=== PATIENT | female | born 1990 | race American Indian/Alaskan Native ===

== ENCOUNTER 2017-12-03 15:35 | Emergency (ER) | payer SELFPAY ==
[2017-12-03 16:30] VITALS: BP 108/70
--- NOTE | 2017-12-03 18:53 | XRay Report ---
FINAL REPORT PROCEDURE: XR ANKLE 3+V LT TECHNIQUE: LEFT ankle radiographs, AP, lateral, and oblique views. HISTORY: Pain/swelling. COMPARISON: No prior studies are available for comparison. FINDINGS: Fracture (s) and/or Dislocation(s): None. Alignment: Normal. Joint space(s): Os trigonum. Soft tissues: Mild soft tissue swelling about the ankle. Bone mineralization: Normal. Foreign bodies: None. Calcaneal spurring: Tiny calcaneal spur. IMPRESSION: Mild soft tissue swelling about the ankle without radiographic evidence of displaced fracture.
[2017-12-03] MEDS ORDERED: MOTRIN PO ONE (19:55)
--- NOTE | 2017-12-03 19:55 | Emergency Department Report ---
ED Lower Extremity HPI - General Chief Complaint: Extremity Injury, Lower Stated Complaint: SWOLLEN (L) ANKLE Time Seen by Provider: 12/03/17 19:10 Source: patient Mode of arrival: Ambulatory Limitations: No Limitations - History of Present Illness Initial Comments: This is a 27-year-old female nontoxic, well nourished in appearance, no acute signs of distress presents to the ED with c/o of left ankle pain and swelling 1 day. Patient stated that she was walking at her ankle. Patient denies any other trauma. Patient denies any numbness, tingling, fever, chills, nausea, vomiting, chest pain, shortness of breath, headache, stiff neck. Patient denies any joint swelling or joint redness. Patient denies decreased range of motion. Patient stated has decreased gait due to pain. Patient denies any allergies or significant past medical history. MD Complaint: ankle injury -: days(s) (1) Injury: Ankle: Left Type of Injury: inversion Place: work Severity: mild Severity scale (0 -10): 8 Improves With: immobilization Worsens With: weight bearing, movement, palpation Associated Symptoms: swelling, able to partially bear weight, ambulatory. denies: snap/pop sensation, numbness, tingling, unable to bear weight - Related Data Previous Rx's Medication Instructions Recorded Last Taken Type Acetaminophen/Codeine [Tylenol 1 tab PO Q6H PRN #12 tab 12/03/17 Unknown Rx /Codeine # 3 tab] Ibuprofen [Motrin] 600 mg PO Q8H PRN #30 tablet 12/03/17 Unknown Rx Allergies Allergy/AdvReac Type Severity Reaction Status Date / Time No Known Allergies Allergy Unverified 12/03/17 16:25 ED Review of Systems ROS: Stated complaint: SWOLLEN (L) ANKLE Other details as noted in HPI Constitutional: denies: chills, fever Eyes: denies: eye pain, eye discharge, vision change ENT: denies: ear pain, throat pain Respiratory: denies: cough, shortness of breath, wheezing Cardiovascular: denies: chest pain, palpitations Endocrine: no symptoms reported Gastrointestinal: denies: abdominal pain, nausea, diarrhea Genitourinary: denies: urgency, dysuria, discharge Musculoskeletal: denies: back pain, joint swelling, arthralgia Skin: denies: rash, lesions Neurological: denies: headache, weakness, paresthesias Psychiatric: denies: anxiety, depression Hematological/Lymphatic: denies: easy bleeding, easy bruising ED Past Medical Hx - Past Medical History Previous Medical History?: Yes Additional medical history: endometreosis - Surgical History Past Surgical History?: Yes Additional Surgical History: hernia repair - Social History Smoking Status: Never Smoker Substance Use Type: None - Medications Home Medications: Home Medications Medication Instructions Recorded Confirmed Last Taken Type Acetaminophen/Codeine [Tylenol 1 tab PO Q6H PRN #12 tab 12/03/17 Unknown Rx /Codeine # 3 tab] Ibuprofen [Motrin] 600 mg PO Q8H PRN #30 tablet 12/03/17 Unknown Rx ED Physical Exam - General Limitations: No Limitations General appearance: alert, in no apparent distress - Head Head exam: Present: atraumatic, normocephalic - Eye Eye exam: Present: normal appearance - ENT ENT exam: Present: mucous membranes moist - Neck Neck exam: Present: normal inspection - Respiratory Respiratory exam: Present: normal lung sounds bilaterally. Absent: respiratory distress - Cardiovascular Cardiovascular Exam: Present: regular rate, normal rhythm. Absent: systolic murmur, diastolic murmur, rubs, gallop - GI/Abdominal GI/Abdominal exam: Present: soft, normal bowel sounds - Extremities Exam Extremities exam: Present: normal inspection, full ROM, tenderness, normal capillary refill. Absent: joint swelling - Expanded Lower Extremity Exam Left Hip exam: Present: normal inspection, full ROM. Absent: tenderness, swelling Upper Leg exam: Present: normal inspection, full ROM. Absent: tenderness, swelling Knee exam: Present: normal inspection, full ROM. Absent: tenderness, swelling Lower Leg exam: Present: normal inspection, full ROM. Absent: tenderness, swelling Ankle exam: Present: normal inspection, full ROM, tenderness, swelling. Absent : abrasion, laceration, ecchymosis, deformity, crepidus, dislocation, erythema, anterior draw sign Foot/Toe exam: Present: normal inspection, full ROM. Absent: tenderness, swelling Neuro vascular tendon exam: Present: no vascular compromise. Absent: pulse deficit, abnormal cap refill, motor deficit, sensory deficit, tendon deficit, extremity cold to touch, pallor, abnormal 2-point discrimination, decreased fine /light touch, foot drop, peroneal nerve deficit, significant pain with passive ROM of distal joint Gait: Positive: observed and limited by pain - Back Exam Back exam: Present: normal inspection, full ROM - Neurological Exam Neurological exam: Present: alert, oriented X3, normal gait - Psychiatric Psychiatric exam: Present: normal affect, normal mood - Skin Skin exam: Present: warm, dry, intact, normal color. Absent: rash ED Course Vital Signs 12/03/17 16:26 Temperature 99.3 F Pulse Rate 65 Respiratory 18 Rate Blood Pressure 108/70 O2 Sat by Pulse 100 Oximetry - Reevaluation(s) Reevaluation #1: 12/03/17 19:54 Patient is speaking in full sentences with no signs of distress noted. ED Lower Extremity MDM - Medical Decision Making This is a 27-year-old female that presents with left ankle sprain. Patient is stable and was examined by me. I referred patient to an orthopedic doctor for further evaluation for possible MRI. X-ray has been obtained and dictated by the radiologist. Patient is notified of the x-ray report with noted by the patient. Patient does have normal gait with no tenderness and no joint swelling. No ecchymosis. no joint redness or swelling. Not warm to touch. No signs of cellulites present. Patient received a ankle immobilizer and crutches and was educated by RN how to use crutches.. Patient was instructed to RICE therapy. Patient received Motrin for pain. Patient is discharged with Motrin. At time of discharge, the patient does not seem toxic or ill in appearance. No acute signs of distress noted. Patient agrees to discharge treatment plan of care. No further questions noted by the patient. Critical care attestation.: If time is entered above; I have spent that time in minutes in the direct care of this critically ill patient, excluding procedure time. ED Disposition Clinical Impression: Left ankle sprain Qualifiers: Encounter type: initial encounter Involved ligament of ankle: unspecified ligament Qualified Code(s): S93.402A - Sprain of unspecified ligament of left ankle, initial encounter Disposition: TO HOME OR SELFCARE Is pt being admited?: No Does the pt Need Aspirin: No Condition: Stable Instructions: Ankle Sprain (ED), Crutch Instructions (ED), RICE Therapy (ED), Acetaminophen/Codeine (By mouth), Ankle Stirrup Splint (ED) Additional Instructions: Follow-up with a orthopedic doctor in 3-5 days or if symptoms worsen and continue return to emergency room as soon as possible. Prescriptions: Acetaminophen/Codeine [Tylenol /Codeine # 3 tab] 1 tab PO Q6H PRN #12 tab PRN Reason: Pain , Severe (7-10) Ibuprofen [Motrin] 600 mg PO Q8H PRN #30 tablet PRN Reason: Pain Referrals: PRIMARY CAREMD [Referring] - 3-5 Days MARIBEL COLES MD [Staff Physician] - 3-5 Days [facility] [Outside] - 3-5 Days [facility] [place] [Outside] - 3-5 Days Forms: Work/School Release Form(ED)
== END 2017-12-03 20:05 | disposition home or self-care (01) ==
LOC: ED 15:35
DX: S93.402A Sprain of unspecified ligament of left ankle, initial encounter (principal); N80.9 Endometriosis, unspecified; X50.1XXA Overexertion from prolonged static or awkward postures, initial encounter; Y93.89 Activity, other specified; Y92.69 Other specified industrial and construction area as the place of occurrence of the external cause; Y99.8 Other external cause status
CPT/HCPCS: 99284

== ENCOUNTER 2017-12-07 02:18 | Emergency (ER) | payer OTHER ==
[2017-12-07] MEDS ORDERED: FLEXERIL PO ONE (05:58)
[2017-12-07] MEDS ORDERED: TORADOL IM ONE (05:58)
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
[2017-12-07 08:37] VITALS: BP 132/61
== END 2017-12-07 08:36 | disposition home or self-care (01) ==
LOC: ED 02:18
DX: S40.021A Contusion of right upper arm, initial encounter (principal); M62.838 Other muscle spasm; R51 Headache; V89.2XXA Person injured in unspecified motor-vehicle accident, traffic, initial encounter; Y93.89 Activity, other specified; Y92.89 Other specified places as the place of occurrence of the external cause; Y99.8 Other external cause status
CPT/HCPCS: 72040; 96372; 99283; J1885

== ENCOUNTER 2019-01-21 01:40 | Emergency (ER) | payer SELFPAY ==
[2019-01-21] MEDS ORDERED: TORADOL IM ONE (05:11)
[2019-01-21] MEDS ORDERED: DECADRON IM ONE (05:11)
--- NOTE | 2019-01-21 06:14 | Cat Scan Report ---
CT cervical spine wo con INDICATION / CLINICAL INFORMATION: Neck pain. TECHNIQUE: All CT scans at this location are performed using CT dose reduction for ALARA by means of automated e xposure control. COMPARISON: None available. FINDINGS: Cervical disc interspaces and bony alignment are normal No significant degenerative changes or other skeletal abnormality. IMPRESSION: 1. Normal CT scan of the cervical spine. Signer Name: Live Triana MD Signed: 01/21/2019 6:09 AM Workstation Name: [id number]
--- NOTE | 2019-01-21 06:59 | Emergency Department Report ---
ED Neck Pain/Injury HPI - General Chief Complaint: Neck Pain/Injury Stated Complaint: NECK AND BACK PAIN AND THROAT PAIN Source: patient Mode of arrival: Ambulatory Limitations: No Limitations - History of Present Illness Initial Comments: Patient is a 28-year-old -[place] female with no past medical history who presents to the ED with Urias of acute onset persistent nontraumatic posterior neck pain for the last 3 days. Patient states that initially the pain was mild but in the last 24 hours the pain has worsened especially in the last 8 hours for that she has not been able to sleep because of severe pain. Patient denies chest pain, shortness of breath, traumatic injury, heavy lifting, headache, nausea, vomiting, back pain, change in vision, fever, chills, cough, numbness and tingling of upper extremities bilaterally, fall or abdominal pain. MD Complaint: neck pain, upper back pain -: Sudden, days(s) (3) Place: home Severity: severe Severity scale (0 -10): 8 Quality: sharp, aching Consistency: constant Improves With: none Worsens With: movement of neck Context: other (spontaneous) Associated Symptoms: none. denies: headache, fever, numbness, tingling, weakness, vertigo, swollen glands, difficulty swallowing, nausea, vomiting Treatments Prior to Arrival: Acetaminophen - Related Data Previous Rx's Medication Instructions Recorded Last Taken Type Acetaminophen/Codeine [Tylenol 1 tab PO Q6H PRN #12 tab 12/03/17 Unknown Rx /Codeine # 3 tab] Ibuprofen [Motrin] 600 mg PO Q8H PRN #30 tablet 12/03/17 Unknown Rx Cyclobenzaprine [Flexeril] 10 mg PO TID PRN #12 tablet 12/07/17 Unknown Rx Ibuprofen [Motrin] 600 mg PO Q8H PRN #12 tablet 12/07/17 Unknown Rx Naproxen 500 mg PO Q12H PRN #30 tablet 01/21/19 Unknown Rx Prednisone [predniSONE 10 mg 10 mg PO .TAPER #21 tab.ds.pk 01/21/19 Unknown Rx (6-Day Pack, 21 Tabs)] methOCARBAMOL [Robaxin TAB] 750 mg PO Q8H PRN #30 tablet 01/21/19 Unknown Rx traMADol [Ultram] 50 mg PO Q6HR PRN #12 tablet 01/21/19 Unknown Rx Allergies Allergy/AdvReac Type Severity Reaction Status Date / Time No Known Allergies Allergy Verified 01/21/19 01:50 ED Review of Systems ROS: Stated complaint: NECK AND BACK PAIN AND THROAT PAIN Other details as noted in HPI Constitutional: denies: chills, fever Eyes: denies: eye pain, eye discharge, vision change ENT: denies: ear pain, throat pain Respiratory: denies: cough, shortness of breath, wheezing Cardiovascular: denies: chest pain, palpitations Endocrine: no symptoms reported Gastrointestinal: denies: abdominal pain, nausea, diarrhea Genitourinary: denies: urgency, dysuria, discharge Musculoskeletal: arthralgia (neck pain), myalgia. denies: back pain, joint swelling Skin: denies: rash, lesions Neurological: denies: headache, weakness, paresthesias Psychiatric: denies: anxiety, depression Hematological/Lymphatic: denies: easy bleeding, easy bruising ED Past Medical Hx - Past Medical History Previous Medical History?: Yes Additional medical history: endometreosis - Surgical History Past Surgical History?: Yes Additional Surgical History: hernia repair - Social History Smoking Status: Never Smoker Substance Use Type: None - Medications Home Medications: Home Medications Medication Instructions Recorded Confirmed Last Taken Type Acetaminophen/Codeine [Tylenol 1 tab PO Q6H PRN #12 tab 12/03/17 Unknown Rx /Codeine # 3 tab] Ibuprofen [Motrin] 600 mg PO Q8H PRN #30 tablet 12/03/17 Unknown Rx Cyclobenzaprine [Flexeril] 10 mg PO TID PRN #12 tablet 12/07/17 Unknown Rx Ibuprofen [Motrin] 600 mg PO Q8H PRN #12 tablet 12/07/17 Unknown Rx Naproxen 500 mg PO Q12H PRN #30 tablet 01/21/19 Unknown Rx Prednisone [predniSONE 10 mg 10 mg PO .TAPER #21 tab.ds.pk 01/21/19 Unknown Rx (6-Day Pack, 21 Tabs)] methOCARBAMOL [Robaxin TAB] 750 mg PO Q8H PRN #30 tablet 01/21/19 Unknown Rx traMADol [Ultram] 50 mg PO Q6HR PRN #12 tablet 01/21/19 Unknown Rx ED Physical Exam - General Limitations: No Limitations General appearance: alert, in no apparent distress - Head Head exam: Present: atraumatic, normocephalic, normal inspection - Eye Eye exam: Present: normal appearance, PERRL, EOMI Pupils: Present: normal accommodation - ENT ENT exam: Present: normal exam, normal orophraynx, mucous membranes moist, TM's normal bilaterally, normal external ear exam - Neck Neck exam: Present: normal inspection, tenderness (palpable cervical paraspinal musculoskeletal tenderness). Absent: full ROM (Limited range of motion due to pain) - Respiratory Respiratory exam: Present: normal lung sounds bilaterally. Absent: respiratory distress, wheezes, rales, rhonchi, chest wall tenderness, accessory muscle use, decreased breath sounds - Cardiovascular Cardiovascular Exam: Present: regular rate, normal rhythm, normal heart sounds. Absent: systolic murmur, diastolic murmur, rubs, gallop - GI/Abdominal GI/Abdominal exam: Present: soft, normal bowel sounds. Absent: tenderness, guarding, hyperactive bowel sounds, hypoactive bowel sounds - Extremities Exam Extremities exam: Present: normal inspection, full ROM, normal capillary refill - Back Exam Back exam: Present: normal inspection, full ROM. Absent: tenderness, CVA tenderness (L), muscle spasm, paraspinal tenderness - Neurological Exam Neurological exam: Present: alert, oriented X3, CN II-XII intact, normal gait, reflexes normal - Psychiatric Psychiatric exam: Present: normal affect, normal mood - Skin Skin exam: Present: warm, dry, intact, normal color. Absent: rash ED Course Vital Signs 01/21/19 01:53 Temperature 98.3 F Pulse Rate 70 Respiratory 18 Rate Blood Pressure 116/71 [Right] O2 Sat by Pulse 100 Oximetry - Reevaluation(s) Reevaluation #1: 01/21/19 06:57 This is a 28-year-old -[place] female with no past medical history presented to the ED with nontraumatic posterior neck pain for 3 days. In the ED, patient is alert and oriented 3 and is not in distress but appears to be in pain. Patient was treated for pain in the ED, and C-spine CT scan without contrast shows no acute cervical spine fractures or subluxations. On reevaluation, patient's pain is well controlled with medications, patient was discharged home on pain medications and muscle relaxants and advised to follow- up with her primary care physician in 5-7 days for reevaluation or return to the ED immediately if symptoms get worse. ED Medical Decision Making - Radiology Data Radiology results: report reviewed, image reviewed C-spine CT scan without contrast shows no acute cervical spine fractures or subluxations. - Medical Decision Making This is a 28-year-old -[place] female with no past medical history presented to the ED with nontraumatic posterior neck pain for 3 days. In the ED, patient is alert and oriented 3 and is not in distress but appears to be in pain. Patient was treated for pain in the ED, and C-spine CT scan without contrast shows no acute cervical spine fractures or subluxations. On reevaluation, patient's pain is well controlled with medications, patient was discharged home on pain medications and muscle relaxants and advised to follow- up with her primary care physician in 5-7 days for reevaluation or return to the ED immediately if symptoms get worse. - Differential Diagnosis Muscle spasm; Muscle strain; degenerative disc disease Critical care attestation.: If time is entered above; I have spent that time in minutes in the direct care of this critically ill patient, excluding procedure time. ED Disposition Clinical Impression: Cervical paraspinal muscle spasm Cervical muscle strain Qualifiers: Encounter type: initial encounter Qualified Code(s): S16.1XXA - Strain of muscle, fascia and tendon at neck level, initial encounter Disposition: - TO HOME OR SELFCARE Is pt being admited?: No Does the pt Need Aspirin: No Condition: Stable Instructions: Muscle Strain (ED), Cervical Sprain (ED) Additional Instructions: Take medication with food, drink plenty of fluids and follow-up with your primary care physician in 7-10 days for reevaluation. Return to the ED i mmediately if symptoms get worse. Prescriptions: Naproxen 500 mg PO Q12H PRN #30 tablet PRN Reason: Pain , Severe (7-10) Prednisone [predniSONE 10 mg (6-Day Pack, 21 Tabs)] 10 mg PO .TAPER #21 tab.ds.pk methOCARBAMOL [Robaxin TAB] 750 mg PO Q8H PRN #30 tablet PRN Reason: Muscle Spasm traMADol [Ultram] 50 mg PO Q6HR PRN #12 tablet PRN Reason: Pain Referrals: PRIMARY CARE, [Primary Care Provider] - 3-5 Days Forms: Work/School Release Form(ED) Time of Disposition: 06:59 Print Language: TURKISH
[2019-01-21 07:40] VITALS: BP 118/74
== END 2019-01-21 07:39 | disposition home or self-care (01) ==
LOC: ED 01:40
DX: S16.1XXA Strain of muscle, fascia and tendon at neck level, initial encounter (principal); M62.838 Other muscle spasm; Z79.899 Other long term (current) drug therapy; X58.XXXA Exposure to other specified factors, initial encounter; Y93.89 Activity, other specified; Y92.89 Other specified places as the place of occurrence of the external cause; Y99.8 Other external cause status
CPT/HCPCS: 72125; 96372; 99283; J1100; J1885